=== PATIENT | female | born 2000 | race Caucasian/White ===

== ENCOUNTER 2019-01-24 20:15 | Emergency (ER) | payer BC, MEDICAID ==
[~2019-01-24] VITALS: Ht 165.1 cm; Wt 79.4 kg
[2019-01-24 21:01] VITALS: Ht 165.1 cm; Wt 79.4 kg
[2019-01-24 21:46] LABS: CALCIUM 8.9 mg/dL (8.5-10.1); CARBON DIOXIDE 26.4 mmol/L (21-32); CHLORIDE SERUM 101 mmol/L (98-107); CREATININE SERUM 0.6 mg/dL (0.6-1.0); GFR1 > 60 mL/min; GLUCOSE SERUM 96 mg/dL (74-106); POTASSIUM SERUM 4.2 mmol/L (3.5-5.1); SODIUM SERUM 139 mmol/L (136-145)
[2019-01-24 21:47] LABS: BASOPHIL % 0.4 % (0-2)
[2019-01-24 21:50] LABS: PLATELET COUNT 430 x10^3mcL (130-400)
[2019-01-24 22:01] LABS: ALKALINE PHOSPHATASE 89 U/L (46-116); ALT/SGPT 26 U/L (14-59); AST/SGOT 19 U/L (15-37); BILIRUBIN TOTAL 0.2 mg/dL (0.20-1.00); TOTAL PROTEIN, SERUM 8.1 g/dL (6.4-8.2)
[2019-01-24 22:27] LABS: AMPHETAMINE QUAL UR NONE DETECTED (See below)
[2019-01-25 05:38] VITALS: BP 129/71
== END 2019-01-25 05:11 ==
LOC: ED 20:15
PROVIDERS: Specialist
DX: S09.8XXA Other specified injuries of head, initial encounter (principal); F31.9 Bipolar disorder, unspecified; I10 Essential (primary) hypertension; W18.30XA Fall on same level, unspecified, initial encounter; Y93.89 Activity, other specified; Y92.89 Other specified places as the place of occurrence of the external cause; Y99.8 Other external cause status
CPT/HCPCS: 36415; 87804; G0480; J7030; Q0092